=== PATIENT | male | born 1960 | race Caucasian/White ===

== ENCOUNTER 2018-11-27 10:14 | Emergency (ER) | payer MEDICAID ==
[~2018-11-27] VITALS: Ht 167.6 cm; Wt 81.6 kg
[~2018-11-27 10:14] MED LIST: GLYB5TAB3 PO
[2018-11-27 10:24] VITALS: BP 125/77; PULSE 73; RESP 20; Ht 167.6 cm; Wt 81.6 kg
[2018-11-27] MEDS ORDERED: GLIP10TA14 PO (12:37)
[2018-11-27] MEDS ORDERED: IBUP-1542 PO (12:37)
[2018-11-27] MEDS ORDERED: LANT3I SC (12:37)
[2018-11-27] MEDS ORDERED: MTF1000T PO (12:37)
--- NOTE | 2018-11-27 12:44 | ERD ---
ER Documentation Chief Complaint Chief Complaint Complains of a leg pain x 3 days needs medication refill HPI 58-year-old male presents requesting a refill on his diabetes medication. He t akes Glucophage, glipizide and Lantus. Patient also has low back pain rating to the right leg. Denies any recent injuries, bladder incontinence, urinary complaints, fevers. Denies any chest pain, shortness of breath, headache, additional symptoms. Patient states that he does not have a primary care doctor and not checked his blood sugar in 3 months although he states he is seen at a local [facility]. ROS All systems reviewed and are negative except as per history of present illness. Medications Home Meds Active Scripts Insulin Glargine* (Lantus*) 100 Unit/Ml Soln, 15 UNIT SC QHS, #1 VIAL Prov:SUMAN PAN MD 11/27/18 Glipizide* (Glipizide*) 10 Mg Tablet, 10 MG PO BID, #60 TAB Prov:SUMAN PAN MD 11/27/18 Metformin* (Glucophage*) 1,000 Mg Tablet, 1000 MG PO BID, #60 TAB Prov:SUMAN PAN MD 11/27/18 Ibuprofen* (Motrin*) 600 Mg Tab, 600 MG PO Q6, #30 TAB Prov:SUMAN PAN MD 11/27/18 Glyburide* (Glyburide*) 5 Mg Tablet, 5 MG PO DAILY, #30 TAB Prov:LYNDA NELSON DO 10/28/15 Allergies Allergies: Coded Allergies: No Known Allergy (Unverified , 10/28/15) PMhx/Soc Medical and Surgical Hx: pt denies Medical Hx, pt denies Surgical Hx Hx Miscellaneous Medical Probl: Yes (dm) Hx Alcohol Use: No Hx Substance Use: No Hx Tobacco Use: No Smoking Status: Never smoker FmHx Family History: No diabetes, No coronary disease, No other Physical Exam Vitals Vital Signs Date Temp Pulse Resp B/P (MAP) Pulse Ox O2 O2 Flow FiO2 Time Delivery Rate 11/27/18 97.5 73 20 125/77 98 10:24 (93) Physical Exam Const: No acute distress Head: Atraumatic Eyes: Normal Conjunctiva ENT: Normal External Ears, Nose and Mouth. Neck: Full range of motion. No meningismus. Resp: Clear to auscultation bilaterally Cardio: Regular rate and rhythm, no murmurs Abd: Soft, non tender, non distended. Normal bowel sounds Skin: No petechiae or rashes Back: No midline or flank tenderness. Tenderness right L4-5 area with mildly positive straight leg raise. Ext: No cyanosis, or edema Neur: Awake and alert. Ambulatory without deficits weakness. Psych: Normal Mood and Affect Results 24 hrs Laboratory Tests Test 11/27/18 12:20 11/27/18 12:28 Bedside Glucose 382 mg/dL Bedside Urine pH (LAB) 5.5 Bedside Urine Protein (LAB) Negative Bedside Urine Glucose (UA) >=1.0% Bedside Urine Ketones (LAB) Negative Bedside Urine Blood Negative Bedside Urine Nitrite (LAB) Negative Bedside Urine Leukocyte Esterase (L Negative Procedures/MDM Blood sugar is less than 400. Urine shows glucose without ketones, additional abnormalities. Patient presents with history of diabetes requesting medication refill. He has no signs of sepsis, DKA, chest pain, shortness of breath, additional signs or symptoms. He has signs and symptoms of nontraumatic sciatica as well without evidence of cauda equina syndrome, epidural abscess, additional concerning signs or symptoms. We will give refills of his medica tions and ibuprofen with instructions for back exercises and primary care follow-up as well as return precautions. The patient was stable with no new complaints during the ER course. Clinically, there is no current evidence to suggest meningitis, sepsis, acute abdomen, pneumonia, stroke, acute coronary syndrome, pulmonary embolism, aortic dissection or any other emergent condition appearing to require further evaluation or hospitalization. Patient counseled regarding my diagnostic impression and care plan. Prior to discharge all questions answered. Pt agrees with treatment plan and understands strict return precautions. Pt is instructed to follow up with primary care provider within 24- 48 hours. Precautionary instructions provided including instructions to return to the ER if not improving or for any worsening or changing symptoms or concerns. Departure Diagnosis: Primary Impression: Pain of right leg Additional Impression: Hyperglycemia Condition: Stable Patient Instructions: Hyperglycemia (High Blood Sugar), Back Exercises, Lumbar, Back Pain W/ Sciatica Referrals: COMMUNITY CLINICS YOU HAVE RECEIVED A MEDICAL SCREENING EXAM AND THE RESULTS INDICATE THAT YOU DO NOT HAVE A CONDITION THAT REQUIRES URGENT TREATMENT IN THE EMERGENCY DEPARTMENT. FURTHER EVALUATION AND TREATMENT OF YOUR CONDITION CAN WAIT UNTIL YOU ARE SEEN IN YOUR DOCTORS OFFICE WITHIN THE NEXT 1-2 DAYS. IT IS YOUR RESPONSIBILITY TO MAKE AN APPOINTMENT FOR FOLOW-UP CARE. IF YOU HAVE A PRIMARY DOCTOR --you should call your primary doctor and schedule an appointment IF YOU DO NOT HAVE A PRIMARY DOCTOR YOU CAN CALL OUR PHYSICIAN REFERRAL HOTLINE AT IF YOU CAN NOT AFFORD TO SEE A PHYSICIAN YOU CAN CHOSE FROM THE FOLLOWING [facility] [address] [facility] [address] [facility] [address] [facility] [address] [facility] [address] [facility] [facility]. [address] Additional Instructions: See primary doctor for further evaluation treatment. Recommend exercises at home for back pain. SUMAN PAN MD Nov 27, 2018 12:43
== END 2018-11-27 12:54 | disposition home or self-care (01) ==
LOC: FTE 10:14
DX: M79.604 Pain in right leg (principal); E11.65 Type 2 diabetes mellitus with hyperglycemia; Z76.0 Encounter for issue of repeat prescription; Z79.4 Long term (current) use of insulin
CPT/HCPCS: 81003; 82962; Z7502; 99282